=== PATIENT | male | born 1975 | race Caucasian/White ===

== ENCOUNTER 2020-08-11 20:52 | Emergency (ER) | payer MEDICAID ==
[~2020-08-11] VITALS: Ht 172.7 cm; Wt 80.9 kg
[2020-08-11 20:58] VITALS: BP 138/99
[2020-08-11] MEDS ORDERED: PROCHC RC (22:28)
[2020-08-11] MEDS ORDERED: DOCU-171 PO (22:36)
== END 2020-08-11 22:50 | disposition home or self-care (01) ==
LOC: ER 20:53
DX: R10.31 Right lower quadrant pain (principal); Z72.89 Other problems related to lifestyle; Z79.899 Other long term (current) drug therapy
CPT/HCPCS: 99283